=== PATIENT | male | born 1965 | race Caucasian/White ===

== ENCOUNTER → 2017-01-15 | Outpatient (REF) ==
--- NOTE | 2017-01-15 12:47 | REP ---
Clinical: Pain. Technique: AP, lateral, bilateral oblique views of the right hand. Findings: No acute fracture dislocation. Moderate osteoarthritic degenerative changes are appreciated primarily involving the interphalangeal joints and most notably involving the distal interphalangeal joint. Findings include subchondral sclerosis, joint space narrowing, and early marginal spurring. 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 Signed by Geovani Anand MD 01/15/2017 12:38 P
--- NOTE | 2017-01-15 12:51 | REP ---
Clinical: Pain and disability. Technique: AP, lateral, coned-down views of the lumbosacral spine. Findings: Alignment and lordosis maintained. No acute fracture / compression injury or subluxation. Moderate to early advanced degenerative changes are identified involving the lower thoracic and lumbosacral spine. Findings include marginal osteophytes, endplate sclerosis, disc space narrowing and hypertrophic facet changes. Impression: Moderate to early advanced multilevel degenerative changes throughout the visualized lower thoracic and lumbosacral spine. No acute fracture / compression injury or subluxation. Signed by Geovani Anand MD 01/15/2017 12:42 P
== END ==
LOC: M SMT 12:13
PROVIDERS: ATTEND Internal Medicine
DX: Z02.71 Encounter for disability determination (principal)